=== PATIENT | female | born 1965 | race Caucasian/White ===

== ENCOUNTER 2022-03-06 13:08 | Emergency (ER) | payer BC ==
[2022-03-06 13:38] VITALS: BP 163/87; PULSE 90; TEMP 98.6; BMI 20.2
== END 2022-03-06 16:11 | disposition home or self-care (01) ==
LOC: JER 13:08
DX: B34.9 Viral infection, unspecified (principal)
CPT/HCPCS: 71046-TC-FY; 99283-25

== ENCOUNTER 2022-06-17 17:34 | Emergency (ER) | payer BC, OTHER ==
[2022-06-17 17:56] VITALS: BP 134/76; PULSE 76; RESP 18; TEMP 97.9; BMI 19.0
[2022-06-17] MEDS ORDERED: METHOCARBAMOL 500 MG TABLET PO ONE (20:16)
[2022-06-17] MEDS ORDERED: IBUPROFEN 600 MG TABLET (FP) PO ONE ×2 (20:16→20:41)
[2022-06-17] MEDS ORDERED: METHOCARBAMOL 500 MG TABLET ONE (20:41)
== END 2022-06-17 21:24 | disposition home or self-care (01) ==
LOC: JERFT 17:34
DX: M25.551 Pain in right hip (principal); M62.838 Other muscle spasm; M25.512 Pain in left shoulder; W01.0XXA Fall on same level from slipping, tripping and stumbling without subsequent striking against object, initial encounter
CPT/HCPCS: 73030-TC-LT-FY; 73502-TC-RT-FY; 99284-25